=== PATIENT | female | born 1955 | race Caucasian/White ===

== ENCOUNTER → 2016-10-30 | Outpatient (CLI) | payer BC | END | disposition short-term general hospital (02) | LOC: CLCARD 08:55 | DX: R07.9 Chest pain, unspecified (principal); R06.02 Shortness of breath; M79.606 Pain in leg, unspecified; R68.84 Jaw pain; E78.5 Hyperlipidemia, unspecified; R29.898 Other symptoms and signs involving the musculoskeletal system; Z82.49 Family history of ischemic heart disease and other diseases of the circulatory system ==